=== PATIENT | male | born 1975 | race American Indian/Alaskan Native ===

== ENCOUNTER 2019-08-28 15:26 | Emergency (ER) | payer SELFPAY ==
--- NOTE | 2019-08-28 15:52 | Event Note ---
ED Screening Note Date of service: 08/28/19 Time: 15:47 ED Screening Note: This is a 44 y.o. M. that presents to the ER with low back pain for 3 days. Patient states he just buried his father last week and reports increased ETOH use. Last intake was 2 days ago Reports low back pain, urinary frequency Denies injury, radiating pain, numbness/tinging, penile discharge, testicular pain/swelling This initial assessment/diagnostic orders/clinical plan/treatment(s) is/are subject to change based on patients health status, clinical progression and re- assessment by fellow clinical providers in the ED. Further treatment and workup at subsequent clinical providers discretion. Patient/guardian urged not to elope from the ED as their condition may be serious if not clinically assessed and managed. Initial orders include: Labs
[2019-08-28 15:56] VITALS: BP 125/82
[2019-08-28 16:31] LABS: Bilirubin,Urine NEG (Negative); Blood,Urine NEG (Negative); Color,Urine Yellow (Yellow); Protein,Urine <15 mg/dL mg/dL (Negative); Urobilinogen,Urine < 2.0 mg/dL (<2.0); WBC,Urine < 1.0 /HPF (0.0-6.0)
[2019-08-28 16:51] LABS: Basophils % (Auto) 0.5 % (0.0-1.8); Eosinophils % (Auto) 1.2 % (0.0-4.3); Hematocrit 47.6 % (35.5-45.6); Hemoglobin 16.6 gm/dl (11.8-15.2); Lymphocytes # (Auto) 1.7 K/mm3 (1.2-5.4); Lymphocytes % (Auto) 46.5 % (13.4-35.0); Mean Corpuscular HGB Conc 35 % (32-34); Mean Corpuscular Volume 95 fl (84-94); Monocytes # (Auto) 0.4 K/mm3 (0.0-0.8); Monocytes % (Auto) 10.9 % (0.0-7.3); Platelet Count 241 K/mm3 (140-440); Red Blood Count 5.02 M/mm3 (3.65-5.03)
[2019-08-28 17:13] LABS: Alanine Aminotransferase 13 units/L (7-56); BUN/Creatinine Ratio 14; Blood Urea Nitrogen 10 mg/dL (9-20); Calcium 9.2 mg/dL (8.4-10.2); Hemolysis Index 64
[2019-08-28] MEDS ORDERED: KETOROLAC 30 MG/1 ML INJ IM ONE (18:23)
--- NOTE | 2019-08-28 18:27 | Emergency Department Report ---
ED Back Pain/Injury HPI - General Chief Complaint: Back Pain/Injury Stated Complaint: BACK PAIN Time Seen by Provider: 08/28/19 15:47 Source: patient Limitations: No Limitations - History of Present Illness Initial Comments: Patient is a 44-year-old male presents emergency room with complaints of lower back pain that began 3 days ago. He denies any fall or injury. He denies any radiation of the pain. He denies any numbness. He is ambulatory. He denies any fever, nausea, vomiting, any other symptoms. He states the pain is worse after sitting for long periods and then standing up. He states he has been bending over a lot during working. He states he had had this same pain before roughly 3 months ago and went to the emergency Department then and it improved with Flexeril. He denies any past medical history allergies medications. He denies any drug use. - Related Data Previous Rx's Medication Instructions Recorded Last Taken Type Naproxen [EC-Naproxen] 500 mg PO BID PRN #20 tablet. 08/28/19 Unknown Rx methOCARBAMOL [Robaxin TAB] 750 mg PO QHS PRN #12 tablet 08/28/19 Unknown Rx Allergies Allergy/AdvReac Type Severity Reaction Status Date / Time No Known Allergies Allergy Verified 08/28/19 15:28 ED Review of Systems ROS: Stated complaint: BACK PAIN Other details as noted in HPI Comment: All other systems reviewed and negative ED Past Medical Hx - Past Medical History Previous Medical History?: No - Surgical History Past Surgical History?: No - Social History Smoking Status: Never Smoker Substance Use Type: None - Medications Home Medications: Home Medications Medication Instructions Recorded Confirmed Last Taken Type Naproxen [EC-Naproxen] 500 mg PO BID PRN #20 tablet. 08/28/19 Unknown Rx methOCARBAMOL [Robaxin TAB] 750 mg PO QHS PRN #12 tablet 08/28/19 Unknown Rx ED Physical Exam - General Limitations: No Limitations General appearance: alert, in no apparent distress - Head Head exam: Present: atraumatic, normocephalic - Eye Eye exam: Present: normal appearance - ENT ENT exam: Present: mucous membranes moist - Neck Neck exam: Present: normal inspection, full ROM. Absent: tenderness - Respiratory Respiratory exam: Present: normal lung sounds bilaterally. Absent: respiratory distress, wheezes, rales, rhonchi, stridor, chest wall tenderness, accessory muscle use, decreased breath sounds, prolonged expiratory - Cardiovascular Cardiovascular Exam: Present: regular rate, normal rhythm, normal heart sounds. Absent: systolic murmur, diastolic murmur, rubs, gallop - Back Exam Back exam: Present: normal inspection, full ROM. Absent: paraspinal tenderness, vertebral tenderness - Neurological Exam Neurological exam: Present: alert, oriented X3, CN II-XII intact, normal gait. Absent: motor sensory deficit - Psychiatric Psychiatric exam: Present: normal affect, normal mood - Skin Skin exam: Present: warm, dry, intact ED Course Vital Signs 08/28/19 15:55 Temperature 98.5 F Pulse Rate 109 H Respiratory 18 Rate Blood Pressure 125/82 O2 Sat by Pulse 99 Oximetry ED Medical Decision Making - Lab Data Result diagrams: 08/28/19 15:58 08/28/19 15:58 Lab Results 08/28/19 08/28/19 08/28/19 Range/Units 15:58 15:58 16:10 WBC 3.7 L (4.5-11.0) K/mm3 RBC 5.02 (3.65-5.03) M/mm3 Hgb 16.6 H (11.8-15.2) gm/dl Hct 47.6 H (35.5-45.6) % MCV 95 H (84-94) fl MCH 33 H (28-32) pg MCHC 35 H (32-34) % RDW 13.0 L (13.2-15.2) % Plt Count 241 (140-440) K/mm3 Lymph % (Auto) 46.5 H (13.4-35.0) % [place] % (Auto) 10.9 H (0.0-7.3) % Eos % (Auto) 1.2 (0.0-4.3) % Baso % (Auto) 0.5 (0.0-1.8) % Lymph # 1.7 (1.2-5.4) K/mm3 [place] # 0.4 (0.0-0.8) K/mm3 Eos # 0.0 (0.0-0.4) K/mm3 Baso # 0.0 (0.0-0.1) K/mm3 Seg Neutrophils % 40.9 (40.0-70.0) % Seg Neutrophils # 1.5 L (1.8-7.7) K/mm3 Sodium 140 (137-145) mmol/L Potassium 4.0 (3.6-5.0) mmol/L Chloride 101.8 (98-107) mmol/L Carbon Dioxide 22 (22-30) mmol/L Anion Gap 20 mmol/L BUN 10 (9-20) mg/dL Creatinine 0.7 L (0.8-1.5) mg/dL Estimated GFR > 60 ml/min BUN/Creatinine Ratio 14 % Glucose 91 (75-100) mg/dL Calcium 9.2 (8.4-10.2) mg/dL Total Bilirubin 0.90 (0.1-1.2) mg/dL AST 20 (5-40) units/L ALT 13 (7-56) units/L Alkaline Phosphatase 83 (35-129) units/L Total Protein 7.5 (6.3-8.2) g/dL Albumin 4.0 (3.9-5) g/dL Albumin/Globulin Ratio 1.1 % Urine Color Yellow (Yellow) Urine Turbidity Clear (Clear) Urine pH 6.0 (5.0-7.0) Ur Specific [place] 1.006 (1.003-1.030) Urine Protein <15 mg/dl (Negative) mg/dL Urine Glucose (UA) Neg (Negative) mg/dL Urine Ketones Neg (Negative) mg/dL Urine Blood Neg (Negative) Urine Nitrite Neg (Negative) Urine Bilirubin Neg (Negative) Urine Urobilinogen < 2.0 (<2.0) mg/dL Ur Leukocyte Esterase Neg (Negative) Urine WBC (Auto) < 1.0 (0.0-6.0) /HPF Urine RBC (Auto) 2.0 (0.0-6.0) /HPF U Epithel Cells (Auto) < 1.0 (0-13.0) /HPF - Medical Decision Making Patient is a 44-year-old male presents emergency room with complaints of lower back pain that began 3 days ago. He denies any fall or injury. He denies any radiation of the pain. He denies any numbness. He is ambulatory. He denies any fever, nausea, vomiting, any other symptoms. He states the pain is worse after sitting for long periods and then standing up. He states he has been bending over a lot during working. He states he had had this same pain before roughly 3 months ago and went to the emergency Department then and it improved with Flexeril. He denies any past medical history allergies medications. He denies any drug use. on exam: No midline spinal or paraspinal tenderness to palpation, no step offs, no deformities, no neuro deficits. Labs are stable. UA is within normal limits. Patient's discomfort treated with Toradol in the ED and improved. Patient has no red flag warning signs of low back pain. He has no trauma, unexplained weight loss, neurological deficits, age is not greater than 50, fever, IVDU, steroid use, history of cancer. Patient given naproxen and Robaxin for his low back discomfort. advised pt Take medication as prescribed as needed. Do not drive or operate machinery while taking muscle relaxer. May use ice pack, heating pad, rest, Epsom salt bath. Follow-up with orthopedic doctor in a primary care doctor in the next 2-3 days for further evaluation. Return to emergency room for any new or worsening symptoms. - Differential Diagnosis strain, sprain, fx, dislocation, DDD, DJD, arthritis, disc herniation Critical care attestation.: If time is entered above; I have spent that time in minutes in the direct care of this critically ill patient, excluding procedure time. ED Disposition Clinical Impression: Low back pain Qualifiers: Chronicity: acute Back pain laterality: unspecified Sciatica presence: without sciatica Qualified Code(s): M54.5 - Low back pain Disposition: DC-01 TO HOME OR SELFCARE Is pt being admited?: No Does the pt Need Aspirin: No Condition: Stable Instructions: Acute Low Back Pain (ED) Additional Instructions: Take medication as prescribed as needed. Do not drive or operate machinery while taking muscle relaxer. May use ice pack, heating pad, rest, Epsom salt bath. Follow-up with orthopedic doctor in a primary care doctor in the next 2-3 days for further evaluation. Return to emergency room for any new or worsening symptoms. Prescriptions: methOCARBAMOL [Robaxin TAB] 750 mg PO QHS PRN #12 tablet PRN Reason: Muscle Spasm Naproxen [EC-Naproxen] 500 mg PO BID PRN #20 tablet.dr KEEN Reason: pain Referrals: [facility] [Provider Group] - 2-3 Days [facility] [Provider Group] - 2-3 Days [facility] [Outside] - 2-3 Days Time of Disposition: 18:26 Print Language: SLOV[place]
== END 2019-08-28 18:37 | disposition home or self-care (01) ==
LOC: ED 15:26
DX: M54.5 Low back pain (principal)
CPT/HCPCS: 36415; 80053; 81001; 85025; 96372; 99283; J1885